=== PATIENT | female | born 1955 | race Caucasian/White ===

== ENCOUNTER 2022-07-20 19:18 | Emergency (ER) | payer BC, MEDICARE, OTHER ==
[2022-07-20] MEDS ORDERED: Take Home: Lisinopril 10 MG, 4 Tab Pack PO ONE (20:14)
== END 2022-07-20 20:38 | disposition home or self-care (01) ==
LOC: LL.ED 19:18
DX: I10 Essential (primary) hypertension (principal)
CPT/HCPCS: 36415; 80053; 81001; 83880; 84443; 84484; 85025; 93005; 93010; 99284; A9270-GY